=== PATIENT | female | born 1960 | race Two or more races ===

== ENCOUNTER → 2024-01-26 15:54 | Outpatient (REF) | payer BC, SELFPAY | LOC: MRI 3T 15:54 | PROVIDERS: ATTENDING PHYSICIAN Physical Medicine & Rehabilitation; FAMILY PHYSICIAN Physician Assistant | DX: M70.62 Trochanteric bursitis, left hip (principal); M76.02 Gluteal tendinitis, left hip | CPT/HCPCS: 73722 ==